=== PATIENT | male | born 2000 | race Hispanic/Latino ===

== ENCOUNTER 2020-11-19 11:58 | Emergency (ER) | payer SELFPAY ==
[2020-11-19] VITALS (9 sets, daily range): BP systolic 114–131; BP diastolic 61–81; PULSE 75–91; RESP 9–20; TEMP 36.7; O2SAT 99–100
--- NOTE | 2020-11-19 12:16 | DI.CT.S_ITS ---
PROCEDURE: CT HEAD/BRAIN WO CON INDICATIONS: Seizure, unresponsive TECHNIQUE: Noncontrast 4.5 mm thick angled axial sections acquired from the foramen magnum to the vertex, with coronal and sagittal reformats. For radiation dose reduction, the following was used: automated exposure control, adjustment of mA and/or kV according to patient size. COMPARISON: None. FINDINGS: Image quality: Excellent. CSF spaces: Basal cisterns are patent. No extra-axial fluid collections. Ventricles are normal in size and shape. Brain: No midline shift. No intracranial masses or hemorrhage. Medrano-white matter interface is normal. Skull and face: Calvarium and visualized facial bones are intact, without suspicious lesions. Sinuses: Mild mucosal thickening is seen in the right maxillary sinus. The remaining visualized sinuses and the mastoids are clear. IMPRESSION: No acute intracranial abnormality. Dictated by: Lawrence Randolph M.D. on 11/19/2020 at 12:58 Approved by: Lawrence Randolph M.D. on 11/19/2020 at 13:01
[2020-11-19 12:19] LABS: Add Manual Diff / Slide Review NO; Basophils Absolute Auto 0 /uL (0-100); Basophils Percent Auto 0.5 % (0-2); Eosinophils Absolute Auto 100 /uL (0-450); Eosinophils Percent Auto 0.9 % (2-4); Hematocrit 47.7 % (41-53); Hemoglobin 16.1 g/dL (13.5-17.5); Lymphocytes Absolute Auto 1800 /uL (1100-4500); Lymphocytes Percent Auto 22.6 % (25-40); Mean Corpuscular HGB Conc 33.7 % (30-36); Mean Corpuscular Hemoglobin 29.9 PG (26-34); Mean Corpuscular Volume 88.7 fL (80-100); Monocytes Absolute Auto 700 /uL (0-900); Monocytes Percent Auto 8.9 % (3-14); Neutrophils Absolute Auto 5400 /uL (1500-7000); Neutrophils Percent Auto 67.1 % (50-75); Platelet Count 199 X10^3/uL (150-400); Red Blood Cell Count 5.38 X10^6/uL (4.5-5.9); Red Cell Distribution Width 13.2 % (11.6-14.8)
[2020-11-19 12:24] LABS: BUN Creatinine Ratio 22.4 (6-22); Blood Urea Nitrogen 19 mg/dL (9-20); Calcium 9.7 mg/dL (8.4-10.2); Carbon Dioxide 28 mmol/L (22-32); Chloride 101 mmol/L (98-107); Estimated Glomerular Filt Rate > 60.0 mL/min (>60); Glucose 92 mg/dL (70-100); Potassium 4.1 mmol/L (3.4-5.1); Sodium 137 mmol/L (137-145)
--- NOTE | 2020-11-19 12:30 | ED.SEIZURE ---
HPI - Seizure General Chief Complaint: Seizure Stated Complaint: Seizure Time Seen by Provider: 11/19/20 12:14 Source: EMS Mode of arrival: EMS Limitations: altered mental status History of Present Illness HPI Narrative: Patient is a 20-year-old male who arrived by EMS after they were called for potential seizure-like activity. There information was obtained by a family friend. It was reported that he potentially has had seizure-like activity in the past. His activity was unwitnessed however EMS reports that since they arrived to evaluate the patient and during the transport here the patient has been unresponsive however has been maintaining airway. There is no signs of trauma. No medications were given in route. Patient unable to provide any HPI. There was some indication by EMS that the patient received notice that a g. Had just prior to these events occurring. Review of Systems Review of Systems ROS Unobtainable: Unobtainable due to mental status/LOC Patient History Medical History Healthy adult Social History lives independently: Yes Exam Initial Vital Signs Initial Vital Signs: Vital Signs Temperature 98.1 F 11/19/20 12:02 Pulse Rate 91 H 11/19/20 12:02 Respiratory Rate 12 11/19/20 12:02 Blood Pressure 128/68 11/19/20 12:02 Pulse Oximetry 100 11/19/20 12:02 Const General: comfortable and well developed Limitations: altered mental status HENMT Head: normal to inspection and normocephalic Eyes Pupils: PERRL Resp Effort & Inspection: normal respiratory effort Auscultation: clear to auscultation bilaterally Cardio Rate: regular rate Rhythm: regular rhythm GI Inspection: non-distended Palpation: soft Skin Lesions: no lesions Rashes: no rashes Neuro General: not alert, not awake and not oriented x3 Extrem General: normal to inspection and capillary refill normal Psych Appearance: well kempt Scores GCS Rhodhiss coma scale eye opening: None Rhodhiss coma scale verbal response: None Rhodhiss coma scale motor response: None Zena coma scale total score: 3 Course Orders Ordered: ED Orders 11/19/20 12:00 Basic Metabolic Panel Stat Complete Blood Count AUTO DIFF Stat Ethanol (ETOH) Stat Magnesium Stat Prolactin Stat 11/19/20 12:16 CT head/brain wo con Stat Discontinued Medications Ammonia (Aromatic Spirit) (Ammonia Inhalant 1 Each) 1 each INH NOW ONE Stop: 11/19/20 12:15 Last Admin: 11/19/20 12:31 Dose: 1 each Documented by: SVITLANA Lorazepam (Lorazepam 2 Mg/Ml Inj) 1 mg IV NOW ONE Stop: 11/19/20 12:30 Last Admin: 11/19/20 12:32 Dose: 1 mg Documented by: SVITLANA Vital Signs Vital signs: Vital Signs - 8 hr 11/19/20 12:02 11/19/20 12:03 11/19/20 12:28 Temperature 98.1 F Pulse Rate 91 H 90 84 Respiratory Rate 12 9 L 10 L Blood Pressure 128/68 128/68 127/78 Pulse Oximetry 100 100 100 11/19/20 12:30 11/19/20 12:51 11/19/20 13:00 Temperature Pulse Rate 84 77 75 Respiratory Rate 17 20 17 Blood Pressure 131/81 118/62 114/61 Pulse Oximetry 99 100 100 11/19/20 13:30 11/19/20 14:00 11/19/20 14:30 Temperature Pulse Rate 76 83 78 Respiratory Rate 18 18 16 Blood Pressure 125/64 119/75 125/62 Pulse Oximetry 100 100 99 MDM - Seizure Lab Data Attestation: I reviewed the patient's lab results. Result diagrams: 11/19/20 12:00 11/19/20 12:00 Labs: Lab Results 11/19/20 11/19/20 11/19/20 Range/Units 12:00 12:00 12:00 WBC 8.0 (4.5-11.0) X10^3/uL RBC 5.38 (4.5-5.9) X10^6/uL Hgb 16.1 (13.5-17.5) g/dL Hct 47.7 (41-53) % MCV 88.7 (80-100) fL MCH 29.9 (26-34) PG MCHC 33.7 (30-36) % RDW 13.2 (11.6-14.8) % Plt Count 199 (150-400) X10^3/uL Neut % (Auto) 67.1 (50-75) % Lymph % (Auto) 22.6 L (25-40) % [place] % (Auto) 8.9 (3-14) % Eos % (Auto) 0.9 L (2-4) % Baso % (Auto) 0.5 (0-2) % Neut # (Auto) 5400 (9307-7999) /uL Lymph # (Auto) 1800 (6226-1093) /uL [place] # (Auto) 700 (0-900) /uL Eos # (Auto) 100 (0-450) /uL Baso # (Auto) 0 (0-100) /uL Sodium 137 (137-145) mmol/L Potassium 4.1 (3.4-5.1) mmol/L Chloride 101 (98-107) mmol/L Carbon Dioxide 28 (22-32) mmol/L BUN 19 (9-20) mg/dL Creatinine 0.85 (0.66-1.25) mg/dL Estimated GFR > 60.0 (>60) mL/min BUN/Creatinine Ratio 22.4 H (6-22) Glucose 92 (70-100) mg/dL Calcium 9.7 (8.4-10.2) mg/dL Magnesium 2.0 (1.6-2.3) mg/dL Prolactin 20.0 H (3.7-17.9) ng/mL Ethyl Alcohol < 10 ( - 10) mg/dL Point of Care Testing Glucose POC [address] scan - head: Radiologist's Impression: [address] [id number] Scan ReportSigned Patient: Jonah Daniel#: [id number]: [id number]:[id number]/Sex: 20 / MDate of Service: 11/19/20Loc: EDAccession Number: [id number] Procedure: CT head/brain wo con Ordering Provider: Gonsalo Hernandez D.O. PROCEDURE: CT HEAD/BRAIN WO CON INDICATIONS: Seizure, unresponsive TECHNIQUE: Noncontrast 4.5 mm thick angled axial sections acquired from the foramen magnum to the vertex, with coronal and sagittal reformats. For radiation dose reduction, the following was used: automated exposure control, adjustment of mA and/or kV according to patient size. COMPARISON: None. FINDINGS: Image quality: Excellent. CSF spaces: Basal cisterns are patent. No extra-axial fluid collections. Ventricles are normal in size and shape. Brain: No midline shift. No intracranial masses or hemorrhage. Medrano-white matter interface is normal. Skull and face: Calvarium and visualized facial bones are intact, without suspicious lesions. Sinuses: Mild mucosal thickening is seen in the right maxillary sinus. The remaining visualized sinuses and the mastoids are clear. IMPRESSION: No acute intracranial abnormality. Dictated by: Lawrence Randolph M.D. on 11/19/2020 at 12:58 Approved by: Lawrence Randolph M.D. on 11/19/2020 at 13:[address] [facility] Narrative Medical decision making narrative: Patient arrived with a GCS of 3 however he was maintaining his own airway. There was no signs of trauma. He did not respond to verbal stimulation nor toxic stimulation nor an ammonia capsule. His blood sugar was unremarkable. Head CT was unremarkable. Shortly after his arrival a family friend arrived to was able to provide more history. Is reported by this family friend that the patient was sitting in his car when he received a phone call that a grandparent had recently . After that is when this event took place. There was no reports of shaking activity. The patient's family friend states that just recently he has had issues with anxiety and panic attacks. He is not seeing anybody for these nor is he taking any other medications for them. Patient's friend also states that the patient has no prior medical history. Patient was given 1 mg of Ativan and shortly afterwards he became alert and oriented. He is [place]-speaking only. We offered the translation line however his family friend offered to translate in both the family friend and the patient were okay with this. Patient states that he did receive this news and shortly afterward he had a overwhelming feeling of anxiety. He has had this in the past and he states that it occasionally happens without any specific triggers. He does not have a primary doctor. Does not have a mental health provider. Denies any drugs or alcohol. Patient was observed here in the emergency department for period of time and states that he feels back to normal. I do have low suspicion for CVA. Low suspicion for TIA. Low suspicion that this is seizure. I do suspect this is anxiety/panic. I did discuss this with the patient. Gave him resources that he can use to help find a primary provider to mental health provider. He did expressed understanding and agreement. Discharge Plan Departure Patient Disposition: Home Clinical Impression: Panic attack Instructions: Anxiety and Panic Attacks (Alternative Therapy), DI for Panic Disorder Activity Restrictions/Additional Instructions: Recommend you contact the [facility] clinic in [place]. Return to the emergency department for any new or worsening symptoms
[2020-11-19] MEDS: AMMONIA INHALANT 1 EACH INH (12:31)
[2020-11-19 12:32] LABS: HEMOLYSIS 58 (0-50)
[2020-11-19] MEDS: LORazepam 2 MG/ML INJ 1 MG IV (12:32)
[2020-11-19 12:41] LABS: Ethanol (ETOH) < 10 mg/dL
== END 2020-11-19 14:38 | disposition home or self-care (01) ==
PROVIDERS: Emergency Provider Emergency Medicine
DX: F41.0 Panic disorder [episodic paroxysmal anxiety] (principal)
CPT/HCPCS: 70450; 80048; 80320; 82962; 83735; 84146; 85025; 96374; 99281; 99284; J2060